=== PATIENT | male | born 1940 | race Two or more races ===

== ENCOUNTER → 2017-05-06 | Outpatient (CLI) | payer BC ==
--- NOTE | 2017-05-07 14:28 | REP ---
Clinical: Shortness of breath . Comparison: 02/16/2016 . Technique: PA and lateral. Findings: The mediastinum and cardiac silhouette are stable and mild cardiomegaly is again appreciated along with pacemaker in satisfactory position. Lung maria demonstrate chronic-appearing interstitial changes without acute consolidation, effusion, or pneumothorax. The skeletal structures are intact and normal. Impression: 1. No acute cardiopulmonary process. Signed by Francisco Garner MD 05/06/2017 08:40 P
== END ==
LOC: M LRY 13:09
PROVIDERS: ATTEND Nurse Practitioner Adult Health
DX: R06.02 Shortness of breath (principal)

== ENCOUNTER → 2017-05-06 | Outpatient (REF) | payer BC ==
[2017-05-06 14:13] LABS: ALBUMIN 3.5 GM/DL (3.2-5.2); ALBUMIN/GLOBULIN RATIO 1.13 (1.00-1.93); BILIRUBIN,TOTAL 0.5 MG/DL (0.2-1.0); CALCIUM LEVEL 8.6 MG/DL (8.8-10.2); CREATININE FOR GFR 1.63 MG/DL (0.70-1.30); GLOMERULAR FILTRATION RATE 44.1 (>42); TOTAL PROTEIN 6.6 GM/DL (6.4-8.2)
[2017-05-06 14:14] LABS: POTASSIUM SERUM 5.2 MEQ/L (3.5-5.1)
== END ==
LOC: M SFHCPLAZ 10:40
PROVIDERS: ATTEND Nurse Practitioner Adult Health
DX: Z00.00 Encounter for general adult medical examination without abnormal findings (principal); Z23 Encounter for immunization; I25.10 Atherosclerotic heart disease of native coronary artery without angina pectoris; R73.9 Hyperglycemia, unspecified; E78.2 Mixed hyperlipidemia

== ENCOUNTER → 2017-08-04 | Outpatient (REF) | payer BC ==
[2017-08-04 19:56] LABS: ALBUMIN 3.7 GM/DL (3.2-5.2); ALBUMIN/GLOBULIN RATIO 1.16 (1.00-1.93); BILIRUBIN,TOTAL 0.5 MG/DL (0.2-1.0); CALCIUM LEVEL 8.9 MG/DL (8.8-10.2); CREATININE FOR GFR 1.53 MG/DL (0.70-1.30); GLOMERULAR FILTRATION RATE 47.3 (>42); TOTAL PROTEIN 6.9 GM/DL (6.4-8.2)
== END ==
LOC: M SFHCPLAZ 14:58
PROVIDERS: ATTEND Nurse Practitioner Adult Health
DX: E11.9 Type 2 diabetes mellitus without complications (principal)

== ENCOUNTER 2020-08-31 14:09 | Emergency (ER) | payer BC ==
[~2020-08-31] VITALS: Ht 177.8 cm; Wt 100.0 kg
[2020-08-31 14:57] LABS: BASO % 0.3 % (0.0-1.0); EOS # 0.1 10^3/uL (0.0-0.5); EOS % 1.6 % (0.0-3.0); HEMOGLOBIN 11.6 g/dl (13.5-17.5); LYMPH # 1.3 10^3/uL (1.5-5.0); LYMPH % 34.1 % (24.0-44.0); MEAN CORPUSCULAR HEMOGLOBIN 29.8 pg (27.0-33.0); MEAN CORPUSCULAR HGB CONC 32.2 g/dl (32.0-36.5); MEAN CORPUSCULAR VOLUME 92.5 fl (80.0-96.0); MONO # 0.3 10^3/uL (0.0-0.8); MONO % 6.9 % (0.0-5.0); NEUTROPHILS # 2.1 10^3/uL (1.5-8.5); NEUTROPHILS % 56.8 % (36.0-66.0); PLATELET COUNT, AUTOMATED 168 10^3/uL (150-450); RED BLOOD COUNT 3.89 10^6/uL (4.30-6.10); WHITE BLOOD COUNT 3.8 10^3/uL (4.0-10.0)
[2020-08-31 15:08] LABS: INR 1.09; PARTIAL THROMBOPLASTIN TIME 30.3 SECONDS (24.2-38.5); PROTHROMBIN TIME 14.3 SECONDS (12.5-14.3)
[2020-08-31 15:11] LABS: D-DIMER QUANT 1626.64 ng/ml (<500)
[2020-08-31 15:21] LABS: ALBUMIN 3.1 GM/DL (3.2-5.2); ALT/SGPT 14 U/L (12-78); BILIRUBIN,TOTAL 0.3 MG/DL (0.2-1.0); BLOOD UREA NITROGEN 33 MG/DL (7-18); C REACTIVE PROTEIN QUANTITATIV 1.88 MG/DL (0.00-0.30); CALCIUM LEVEL 7.7 MG/DL (8.8-10.2); CARBON DIOXIDE LEVEL 24 MEQ/L (21-32); CHLORIDE LEVEL 106 MEQ/L (98-107); CPK CREATINE PHOSPHOKINASE 68 U/L (39-308); CREATININE FOR GFR 1.81 MG/DL (0.70-1.30); FERRITIN 563 NG/ML (26-388); GLOMERULAR FILTRATION RATE 38.7 (>42); GLUCOSE, FASTING 145 MG/DL (70-100); LDH LACTATE DEHYDROGENASE 180 U/L (87-241); MAGNESIUM LEVEL 2.2 MG/DL (1.8-2.4); MB/CK RELATIVE INDEX 1.47 (< OR =4); POTASSIUM SERUM 4.7 MEQ/L (3.5-5.1); SODIUM LEVEL 135 MEQ/L (136-145); TROPONIN I < 0.02 NG/ML (< 0.10)
[2020-08-31] MEDS ORDERED: CARV25TA PO (16:23)
[2020-08-31] MEDS ORDERED: LISI40TA PO (16:23)
[2020-08-31] MEDS ORDERED: JARD1TAB PO (16:23)
[2020-08-31] MEDS ORDERED: SPIR-10 PO (16:23)
--- NOTE | 2020-08-31 16:39 | REP ---
INDICATION: Coronavirus workup COMPARISON: 05/06/2017 TECHNIQUE: Portable AP view of the chest FINDINGS: The mediastinum and cardiac silhouette are stable and within normal limits for portable technique. Chronic elevation to the right hemidiaphragm is again noted. Very subtle right basilar airspace disease cannot be excluded and should be correlated with auscultation and physical examination. No further consolidation. No effusion or pneumothorax. Skeletal structures demonstrate degenerative changes. IMPRESSION: Cannot exclude very subtle right basilar airspace disease. <Electronically signed by Francisco Garner > 08/31/20 [id number]
[2020-08-31 17:09] VITALS: BP 118/56
--- NOTE | 2020-08-31 18:22 | ECGEPIP ---
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
== END 2020-08-31 17:18 | disposition left against medical advice (07) ==
LOC: M ED 14:09
DX: U07.1 COVID-19 (principal); R00.1 Bradycardia, unspecified; E11.9 Type 2 diabetes mellitus without complications; I10 Essential (primary) hypertension; Z53.20 Procedure and treatment not carried out because of patient's decision for unspecified reasons; Z79.899 Other long term (current) drug therapy
CPT/HCPCS: 71045; 80053; 82550; 82553; 82728; 83605; 83615; 83735; 84145; 84484; 85025; 85379; 85384; 85610; 85730; 86140; 87040; 93005; 99284; U0002

== ENCOUNTER → 2020-10-10 | Outpatient (CLI) | payer BC ==
[~2020-10-10] MED LIST: CARV25TA PO; JARD1TAB PO; LISI40TA4 PO; SPIR-10 PO
--- NOTE | 2020-10-10 15:11 | REPPI ---
INDICATION: M25.551 RIGHT HIP PAIN. COMPARISON: None. TECHNIQUE: AP and frogleg views of the right hip FINDINGS: Patient is status post right hip arthroplasty. The components of the arthroplasty appear well aligned with respect to each other and the [place] bones. There is vascular calcification. Minimal heterotopic bone formation is seen medially and laterally. No fracture or subluxation is seen. IMPRESSION: Status post right hip arthroplasty. Mild heterotopic bone formation. No acute bony abnormality. <Electronically signed by Alvaro No > 10/10/20 [id number]
--- NOTE | 2020-10-10 15:12 | REPPI ---
INDICATION: M25.551 RIGHT HIP PAIN M54.5 RIGHT SIDED LOW BACK PAIN. COMPARISON: None. TECHNIQUE: AP view pelvis. FINDINGS: There is no evidence of acute fracture or dislocation. Right total hip prosthesis is noted in good position. Heterotopic calcifications are seen lateral to the prosthetic hip joint. There is severe arthritic changes at the left hip joint with diffuse significant joint space narrowing, subchondral sclerosis and spurring. There are mild degenerative changes of the lower lumbar spine. IMPRESSION: No acute fracture or dislocation. 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 <Electronically signed by El Flores > 10/10/20 [id number]
== END ==
LOC: M PLAIMG 14:42
PROVIDERS: ATTEND Physician Assistant
DX: M25.551 Pain in right hip (principal); M54.5 Low back pain

== ENCOUNTER 2022-01-22 19:48 | Emergency (ER) | payer BC ==
[2022-01-22 21:00] VITALS: BP 112/59
[2022-01-22 21:35] LABS: RSV AMPLIFICATION NEGATIVE (NEGATIVE)
== END 2022-01-22 22:23 | disposition left against medical advice (07) ==
LOC: M ED 19:48 → EDBD 19:48 → M ED 22:23
DX: Z53.21 Procedure and treatment not carried out due to patient leaving prior to being seen by health care provider (principal)

== ENCOUNTER → 2022-09-24 | Outpatient (CLI) | payer MEDICARE, BC ==
[2022-09-24 16:05] LABS: HEMATOCRIT 40.7 % (42.0-52.0); HEMOGLOBIN 13.2 g/dl (13.5-17.5); MEAN CORPUSCULAR HEMOGLOBIN 30.8 pg (27.0-33.0); MEAN CORPUSCULAR HGB CONC 32.4 g/dl (32.0-36.5); MEAN CORPUSCULAR VOLUME 94.9 fl (80.0-96.0); PLATELET COUNT, AUTOMATED 196 10^3/uL (150-450); RED BLOOD COUNT 4.29 10^6/uL (4.30-6.10); WHITE BLOOD COUNT 7.5 10^3/uL (4.0-10.0)
[2022-09-24 16:24] LABS: ALBUMIN 3.5 G/DL (3.2-5.2); CALCIUM LEVEL 9.1 MG/DL (8.3-10.6); CREATININE FOR GFR 1.41 MG/DL (0.70-1.30); GLOMERULAR FILTRATION RATE 51.4 (>35); PHOSPHORUS LEVEL 3.4 MG/DL (2.4-5.1); POTASSIUM SERUM 5.2 MMOL/L (3.5-5.1)
== END ==
LOC: M PLALAB 14:02
PROVIDERS: ATTEND Physician Assistant
DX: I50.41 Acute combined systolic (congestive) and diastolic (congestive) heart failure (principal); Z95.0 Presence of cardiac pacemaker